=== PATIENT | male | born 1960 | race Caucasian/White ===

== ENCOUNTER 2022-02-08 13:48 | Observation (INO) | payer MEDICARE, MEDICAID, SELFPAY ==
[2022-02-08] VITALS (7 sets, daily range): BP systolic 99–142; BP diastolic 60–78; PULSE 76–100; RESP 16–18; TEMP 36.7–37.2; O2SAT 96–98; BMI 36.0; BMI 36.1
--- NOTE | ~2022-02-08 | XR_ITS ---
EXAMINATION: XR CHEST CLINICAL INFORMATION: Syncope COMPARISON: Chest x-ray 02/10/2018 TECHNIQUE: Frontal view of the chest was obtained. FINDINGS: Stable cardiac silhouette. Patient is status post CABG. The lungs are well aerated. There is no lobar consolidation. No pleural effusion or pneumothorax. Degenerative changes of the spine. XR/XR chest 1V IMPRESSION: No acute pulmonary pathology.
--- NOTE | ~2022-02-08 | CT_ITS ---
EXAMINATION: CT HEAD WITHOUT CONTRAST CLINICAL INFORMATION: Syncope question head injury COMPARISON: None TECHNIQUE: Contiguous axial imaging was performed from the skull base to vertex without intravenous administration of contrast. This CT examination was performed using dose optimization techniques as appropriate, variously including the following: *Automated exposure control *Adjustment of mA and/or kV according to patient size (this includes techniques or standardized protocols for targeted exams where dose is matched to indication/reason for exam; i.e. extremities or head) *Use of iterative reconstruction technique DLP: 696 mGy-cm FINDINGS: There is no evidence of acute intracranial hemorrhage or territorial infarction. No abnormal mass effect or midline shift is seen. [place] to white matter differentiation is well preserved. No extra-axial fluid collections are identified. The ventricles are normal in size. There is no abnormal attenuation within the brain parenchyma. The osseous structures and soft tissues are normal. The mastoid air cells and visualized portions of the paranasal sinuses are well aerated. CT/CT head/brain wo con IMPRESSION: No acute intracranial pathology.
--- NOTE | 2022-02-08 14:21 | ECG_ITS ---
Test Reason : syncope Blood Pressure : / mmHG Vent. Rate : 083 BPM Atrial Rate : 083 BPM P-R Int : 170 ms QRS Dur : 086 ms QT Int : 378 ms P-R-T Axes : 049 051 053 degrees QTc Int : 444 ms Normal sinus rhythm Low voltage QRS T wave abnormality, consider anterior ischemia Abnormal ECG When compared with ECG of 20-NOV-2019 12:18, Premature ventricular complexes are no longer Present Inverted T waves have replaced nonspecific T wave abnormality in Anterior leads Referred By: Jesica Bean Electronically Signed By:CECILE DAWKINS
--- NOTE | 2022-02-08 14:30 | ED.SYNCOPE ---
HPI - Syncope General Chief Complaint: Syncope Stated Complaint: SYNCOPAL EPISODE Time Seen by Provider: 02/08/22 14:06 Source: patient and EMS Mode of arrival: EMS History of Present Illness HPI narrative: 61-year-old male with a past medical history of gastric bypass, CAD, HTN, ETOH abuse, HLD, presenting to the ED s/p syncopal episode while at restaurant [employer]. Per patient he was alone and had nausea with the urge to use the bathroom, stood up and syncopized, unknown head trauma, + LOC, also with fecal defecation and urinary incontinence during episode. Unknown seizure-like activity witnessed. Reports drinking 6 pack of beer daily, does admit to drinking today. Denies history of ETOH withdrawal/withdrawal seizures or prior seizures in the past. Denies headache/visual changes, CP or SOB prior to incident or now. Denies vomiting, dysuria/hematuria. Patient is poor historian MD complaint: loss of consciousness and collapsed Related Data Home Medications Medication Instructions Recorded Confirmed aspirin 81 mg tablet,delayed 1 tab PO DAILY 02/08/22 02/08/22 release atorvastatin 80 mg tablet 1 tab PO DAILY 02/08/22 02/08/22 carvedilol 6.25 mg tablet 1 tab PO BID 02/08/22 02/08/22 cholecalciferol (vitamin D3) 25 1 cap PO DAILY 02/08/22 02/08/22 mcg (1,000 unit) capsule icosapent ethyl 1 gram capsule 2 cap PO BID 02/08/22 02/08/22 lisinopril 10 mg tablet 1 tab PO DAILY 02/08/22 02/08/22 Allergies Allergy/AdvReac Type Severity Reaction Status Date / Time atorvastatin [Lipitor] Allergy Unknown abdominal Verified 10/03/16 00:00 pain pravastatin Allergy Unknown abdominal Verified 10/03/16 00:00 pain rosuvastatin [From CRESTOR] AdvReac Intermediate MUSCLE PAIN Unverified 07/02/20 16:20 Review of Systems Review of Systems: Constitutional: No Fever, No Chills, No Fatigue, No Malaise ENT/Mouth: No Ear Pain, No Nasal Congestion, No Hoarseness, No sore throat, No Rhinorrhea, No Swallowing Difficulty Eyes: No Eye Pain, No Swelling, No Redness, No Discharge, No Vision Changes Cardiovascular: No Chest Pain, No SOB, No Edema, No Palpitations Respiratory: No Cough, No Sputum, No Dyspnea Gastrointestinal: + Nausea (resolved), No Vomiting, No Diarrhea, No Constipation, No Abdominal pain Genitourinary: No Dysuria, No Urinary Frequency, No Hematuria, + Urinary Incontinence & +fecal incoinence, No Urgency, No Flank Pain, No Urinary Flow Changes, No Hesitancy Musculoskeletal: No joint pain, No Myalgias, No Joint Swelling Skin: No Skin Lesions, No rash Neuro: No Weakness, No Numbness, No Paresthesias, + Loss of Consciousness, No Dizziness, No Headache Yes all other systems are reviewed and are negative FORMERLY [facility] Past Medical History Attestation statement: The following information was validated with the patient. Medical History Bypass graft stenosis CAD (coronary artery disease) HTN (hypertension) Social History Social History Advance Directives: No Advance Directives Information Provided: No Physical Exam Vital Signs: Vital Signs: Last Vital Signs Temp 98.3 F 02/08/22 15:28 Pulse 89 02/08/22 15:28 Resp 18 02/08/22 15:28 BP 109/63 02/08/22 15:28 Pulse Ox 96 02/08/22 15:28 BMI result Body Mass Index 36.0 Const: General: cooperative, healthy appearing and no acute distress Orientation/consciousness: patient oriented x3 Limitations: no limitations HEENT: Head: Yes normal to inspection, Yes atraumatic, No Proctor's sign and No raccoon eyes Ears: hearing grossly normal bilaterally General nose exam: Normal external nose present Face and sinus: Yes normal facial exam Throat: Yes posterior oropharynx normal Eyes: General: appearance normal, both eyes and all related structures Pupils: Equal, round and reactive pupils present EOM: EOMs intact bilaterally Neck: Other: No midline cervical spinous tenderness Neck: Yes normal visual inspection and Yes no meningeal signs Resp: Effort & Inspection: normal respiratory effort and no respiratory distress Auscultation: clear to auscultation bilaterally, no rales, no rhonchi and no wheezes Cardio: Rate: regular rate Heart sounds: S1 normal heart sound present and S2 normal heart sound present GI: Other: + fecal and urinary incontinence Inspection: Yes normal to inspection Palpation (GI): Soft to palpation, nontender, no guarding and not rigid Back/Spine/Pelvis: Thoracic/Lumbar Spine: thoracic and lumbar spine normal to inspection Skin: Rashes: no rashes Wounds: no wounds Neuro: Other: No evidence of tongue fasciculations or tremors General: patient oriented x3, tone normal, moves all extremities, no meningeal signs, no focal motor deficits and CN's II-XI intact bilaterally Cranial nerves: Yes CN's II-XII intact bilaterally, Yes Equal, round and reactive pupils present and Yes Bilaterally intact EOM present Motor exam (neuro): 5/5 motor strength present throughout Extrem: General: Yes normal to inspection Course Course Course Narrative: -1520--leukopenia to 4.5. Lactic acid elevated 3.7 > consistent with seizure-like activity -AST/ALT elevated & lipase elevated to 114 > likely from chronic ETOH abuse. Ethanol 140 >> phenobarb protocol initiated XR chest 1V IMPRESSION: No acute pulmonary pathology. -results discussed with patient with certified court/medical interpreter, plan to admit for further management. Patient's close friend Howie Gordon's contact # CT head/brain wo con IMPRESSION: No acute intracranial pathology. > plan to admit for further management MDM - Syncope MDM Narrative Medical decision making narrative: 61-year-old male with a past medical history of gastric bypass, CAD, HTN, ETOH abuse, HLD, presenting to the ED s/p syncopal episode while at restaurant [employer], + LOC, also with fecal defecation and urinary incontinence during episode. Unknown seizure-like activity witnessed. On exam vital signs stable, NAD, no focal neuro deficits, no midline spinous tenderness throughout. Concern for syncope vs seizure vs ETOH withdrawal seizure vs ETOH intoxication. No evidence of ETOH withdrawal at this time. R/o out ACS and metabolic/infectious etiologies Plan: EKG, labs, UA, head CT, CXR, orthostatics, IVF, re-evaluate Differential Diagnosis Differential diagnosis: Likely vasovagal syncope and dehydration Medical Records Attestation: I reviewed the patient's medical records. Lab Data Attestation: I reviewed the patient's lab results. Result diagrams: 02/08/22 14:43 02/08/22 14:43 Labs: Lab Results 04/26/22 04/26/22 04/26/22 Range/Units 14:43 14:43 14:43 WBC 4.5 L (4.8-10.8) X10*3/uL RBC 5.58 (4.60-5.80) X10*6/uL Hgb 14.5 (14.0-18.0) g/dl Hct 44.3 (42.0-52.0) % MCV 79.4 L (80.0-98.0) fL MCH 26.0 L (27.0-33.0) pg MCHC 32.7 (31.0-36.0) g/dl RDW 17.9 H (11.0-16.0) % Plt Count 127 L (160-400) X10*3/uL MPV 11.6 (9.4-12.4) fL Immature Gran % (Auto) 0.2 (0.0-0.4) % Neut % (Auto) 55.0 (45-73) % Lymph % (Auto) 33.8 (20-40) % Treasure % (Auto) 5.8 (2-11) % Eos % (Auto) 4.3 H (0-4) % Baso % (Auto) 0.9 (0-2) % Lymph # (Auto) 1.5 (1.2-4.9) X10*3/uL Treasure # (Auto) 0.3 (0.1-1.2) X10*3/uL Eos # (Auto) 0.2 (0.0-0.4) X10*3/uL Baso # (Auto) 0.0 (0.0-0.2) X10*3/uL Abs Immat Gran (auto) 0.01 (0.00-0.03) X10*3/uL Absolute Neuts (auto) 2.5 (2.0-8.3) x10*3/uL Absolute Nucleated RBC 0.000 (0.0-0.012) X10*3/uL Nucleated RBC % (auto) 0.0 (0.0-0.2) /100WBC Sodium 135 (135-145) mmol/L Potassium 3.9 (3.3-5.1) mmol/L Chloride 102 (96-108) mmol/L Carbon Dioxide 23 (22-29) mmol/L Anion Gap 14 (12-20) BUN 9 (9-16) mg/dL Creatinine 1.01 (0.5-1.4) mg/dL Estim Creat Clear Calc 82.0 Estimated GFR > 60 Random Glucose 167 H (60-115) mg/dL Lactic Acid 3.7 H* (0.5-2.0) mmol/L Calcium 8.3 L (8.4-10.2) mg/dL Magnesium 2.0 (1.6-2.6) mg/dL Total Bilirubin 0.7 (0.0-1.0) mg/dL Direct Bilirubin 0.3 (0.0-0.5) mg/dL AST 184 H (5-37) U/L ALT 93 H (0-40) U/L Alkaline Phosphatase 70 (39-117) U/L Troponin I High Sens (<3.5-35.0) ng/L Total Protein 7.4 (6.5-8.0) g/dL Albumin 3.8 (3.5-5.0) g/dL Lipase 114 H (8-78) U/L Ethyl Alcohol mg/dL COVID-19 ([facility]) (Negative) COVID-19 Clin Com Influenza Type A (LUBA) (Negative) Influenza Type B (LUBA) (Negative) Influenza A & B Note 02/08/22 02/08/22 02/08/22 Range/Units 14:43 14:43 14:43 WBC (4.8-10.8) X10*3/uL RBC (4.60-5.80) X10*6/uL Hgb (14.0-18.0) g/dl Hct (42.0-52.0) % MCV (80.0-98.0) fL MCH (27.0-33.0) pg MCHC (31.0-36.0) g/dl RDW (11.0-16.0) % Plt Count (160-400) X10*3/uL MPV (9.4-12.4) fL Immature Gran % (Auto) (0.0-0.4) % Neut % (Auto) (45-73) % Lymph % (Auto) (20-40) % Treasure % (Auto) (2-11) % Eos % (Auto) (0-4) % Baso % (Auto) (0-2) % Lymph # (Auto) (1.2-4.9) X10*3/uL Treasure # (Auto) (0.1-1.2) X10*3/uL Eos # (Auto) (0.0-0.4) X10*3/uL Baso # (Auto) (0.0-0.2) X10*3/uL Abs Immat Gran (auto) (0.00-0.03) X10*3/uL Absolute Neuts (auto) (2.0-8.3) x10*3/uL Absolute Nucleated RBC (0.0-0.012) X10*3/uL Nucleated RBC % (auto) (0.0-0.2) /100WBC Sodium (135-145) mmol/L Potassium (3.3-5.1) mmol/L Chloride (96-108) mmol/L Carbon Dioxide (22-29) mmol/L Anion Gap (12-20) BUN (9-16) mg/dL Creatinine (0.5-1.4) mg/dL Estim Creat Clear Calc Estimated GFR Random Glucose (60-115) mg/dL Lactic Acid (0.5-2.0) mmol/L Calcium (8.4-10.2) mg/dL Magnesium (1.6-2.6) mg/dL Total Bilirubin (0.0-1.0) mg/dL Direct Bilirubin (0.0-0.5) mg/dL AST (5-37) U/L ALT (0-40) U/L Alkaline Phosphatase (39-117) U/L Troponin I High Sens < 3.5 (<3.5-35.0) ng/L Total Protein (6.5-8.0) g/dL Albumin (3.5-5.0) g/dL Lipase (8-78) U/L Ethyl Alcohol mg/dL COVID-19 ([facility]) Negative (Negative) COVID-19 Clin Com See Note Influenza Type A ([facility]BA) Negative (Negative) Influenza Type B (LUBA) Negative (Negative) Influenza A & B Note See Note 02/08/22 Range/Units 14:43 WBC (4.8-10.8) X10*3/uL RBC (4.60-5.80) X10*6/uL Hgb (14.0-18.0) g/dl Hct (42.0-52.0) % MCV (80.0-98.0) fL MCH (27.0-33.0) pg MCHC (31.0-36.0) g/dl RDW (11.0-16.0) % Plt Count (160-400) X10*3/uL MPV (9.4-12.4) fL Immature Gran % (Auto) (0.0-0.4) % Neut % (Auto) (45-73) % Lymph % (Auto) (20-40) % Treasure % (Auto) (2-11) % Eos % (Auto) (0-4) % Baso % (Auto) (0-2) % Lymph # (Auto) (1.2-4.9) X10*3/uL Treasure # (Auto) (0.1-1.2) X10*3/uL Eos # (Auto) (0.0-0.4) X10*3/uL Baso # (Auto) (0.0-0.2) X10*3/uL Abs Immat Gran (auto) (0.00-0.03) X10*3/uL Absolute Neuts (auto) (2.0-8.3) x10*3/uL Absolute Nucleated RBC (0.0-0.012) X10*3/uL Nucleated RBC % (auto) (0.0-0.2) /100WBC Sodium (135-145) mmol/L Potassium (3.3-5.1) mmol/L Chloride (96-108) mmol/L Carbon Dioxide (22-29) mmol/L Anion Gap (12-20) BUN (9-16) mg/dL Creatinine (0.5-1.4) mg/dL Estim Creat Clear Calc Estimated GFR Random Glucose (60-115) mg/dL Lactic Acid (0.5-2.0) mmol/L Calcium (8.4-10.2) mg/dL Magnesium (1.6-2.6) mg/dL Total Bilirubin (0.0-1.0) mg/dL Direct Bilirubin (0.0-0.5) mg/dL AST (5-37) U/L ALT (0-40) U/L Alkaline Phosphatase (39-117) U/L Troponin I High Sens (<3.5-35.0) ng/L Total Protein (6.5-8.0) g/dL Albumin (3.5-5.0) g/dL Lipase (8-78) U/L Ethyl Alcohol 140 mg/dL COVID-19 ([facility]) (Negative) COVID-19 Clin Com Influenza Type A ([facility]BA) (Negative) Influenza Type B (LUBA) (Negative) Influenza A & B Note ECG Data Attestation: I personally reviewed and interpreted this ECG as follows: ECG interpretation date: 02/08/22 ECG interpretation time: 14:17 Interpretation: EKG normal sinus rhythm with rate of 83. Low voltage QRS. QRS 86. QTC 444. No STEMI Discharge Plan Discharge Clinical Impression: Seizure Patient Disposition: Admitted As Inpatient Prescriptions: No Action atorvastatin 80 mg tablet 1 tab PO DAILY 0RF carvedilol 6.25 mg tablet 1 tab PO BID 0RF aspirin 81 mg tablet,delayed release (DR/EC) 1 tab PO DAILY 0RF lisinopril 10 mg tablet 1 tab PO DAILY 0RF cholecalciferol (vitamin D3) 25 mcg (1,000 unit) capsule 1 cap PO DAILY 0RF icosapent ethyl 1 gram capsule 2 cap PO BID 0RF
[2022-02-08 14:49] LABS: MANUAL DIFF FLAG NO
[2022-02-08 14:51] LABS: Basophils Percent Auto 0.9 % (0-2); Eosinophils Absolute Auto 0.2 X10*3/uL (0.0-0.4); Eosinophils Percent Auto 4.3 % (0-4); Hematocrit 44.3 % (42.0-52.0); Hemoglobin 14.5 g/dl (14.0-18.0); Imm Gran Abs Auto 0.01 X10*3/uL (0.00-0.03); Imm Gran Pct Auto 0.2 % (0.0-0.4); Lymphocytes Absolute Auto 1.5 X10*3/uL (1.2-4.9); Lymphocytes Percent Auto 33.8 % (20-40); Mean Corpuscular HGB Conc 32.7 g/dl (31.0-36.0); Mean Corpuscular Volume 79.4 fL (80.0-98.0); Mean Platelet Volume 11.6 fL (9.4-12.4); Monocytes Absolute Auto 0.3 X10*3/uL (0.1-1.2); Monocytes Percent Auto 5.8 % (2-11); Neutrophils Absolute Auto 2.5 x10*3/uL (2.0-8.3); Platelet Count 127 X10*3/uL (160-400); Red Blood Count 5.58 X10*6/uL (4.60-5.80); Red Cell Distribution Width 17.9 % (11.0-16.0); White Blood Count 4.5 X10*3/uL (4.8-10.8)
--- NOTE | 2022-02-08 14:56 | PHA.MEDREC ---
Pharmacy Consult ? Medication Reconciliation Pharmacy has completed the medication reconciliation. pt says his oyster tonger told him to stop plavix
[2022-02-08] MEDS: 0.9 % Sodium Chloride 1,000 ML 999 ML IV ×2 (14:58→16:08)
[2022-02-08 15:06] LABS: Ethanol 140 mg/dL
[2022-02-08 15:10] LABS: Lactic Acid 3.7 mmol/L (0.5-2.0)
[2022-02-08 15:11] LABS: COVID-19 Test Negative (Negative); IDNOW Serial# 16C4AD1C; Influenza A Negative (Negative); Influenza B2 Negative (Negative)
[2022-02-08 15:12] LABS: Troponin-I High Sensitivity < 3.5 ng/L (<3.5-35.0)
[2022-02-08 15:18] LABS: Alanine Aminotransferase 93 U/L (0-40); Albumin Level 3.8 g/dL (3.5-5.0); Alkaline Phosphatase 70 U/L (39-117); Anion Gap 14 (12-20); Aspartate Amino Transferase 184 U/L (5-37); Bilirubin Direct 0.3 mg/dL (0.0-0.5); Bilirubin Total 0.7 mg/dL (0.0-1.0); Blood Urea Nitrogen 9 mg/dL (9-16); Calcium 8.3 mg/dL (8.4-10.2); Carbon Dioxide 23 mmol/L (22-29); Chloride 102 mmol/L (96-108); Estimated Glomerular Filt Rate > 60; Glucose Random 167 mg/dL (60-115); Lipase 114 U/L (8-78); Potassium 3.9 mmol/L (3.3-5.1); Sodium 135 mmol/L (135-145); Total Protein 7.4 g/dL (6.5-8.0)
[2022-02-08] MEDS: PHENobarbitaL 200 MG, PHENobarbitaL 30 MG 230 MG PO (16:10)
[2022-02-08 16:47] LABS: Reflex Lactate? Lactic Acid Added
[2022-02-08 17:45] LABS: Lactic Acid 3.5 mmol/L (0.5-2.0)
--- NOTE | 2022-02-08 17:55 | P.HPHOSP_ITS ---
History of Present Illness Date of Service: 02/08/22 Chief Complaint: Passing out 61-year-old male with a past medical history of gastric bypass, CAD, HTN, Alcohol dependence he drinks a 6 pack a day, HLD, coming to the ED following a syncopal episode. He states that he was a restaurant, he had nausea and needing to go the bathroom.? He stood up and syncopize with LOC and had fecal and urinary incontinence but no report of tonic clonic activities. He was diaphoretic but seeemed to be ok following the incident. He tells me he drinks 6 pack of beer daily and last drank yesterday. Alcohol level was 140 ? Review of Systems Review of Systems: Gen: no fever Resp: no sob, no cough CV: no chest, no BHAT, no leg edema GI: No n/v, no abd pain Neuro: No confusion Yes all other systems are reviewed and are negative [facility] Medical History Bypass graft stenosis CAD (coronary artery disease) HTN (hypertension) Family History (Updated 02/08/22 @ 18:23 by Alf Yepez MD) Other HTN (hypertension) Social History Patient Tobacco Use Status: Never used Tobacco Currently Displaying Signs/Symptoms of Drug Intoxication Withdrawal: No Advance Directives: No Advance Directives Information Provided: No service: No Current occupational status: retired Meds Allergies Allergy/AdvReac Type Severity Reaction Status Date / Time atorvastatin [Lipitor] Allergy Unknown abdominal Verified 10/03/16 00:00 pain pravastatin Allergy Unknown abdominal Verified 10/03/16 00:00 pain rosuvastatin [From CRESTOR] AdvReac Intermediate MUSCLE PAIN Unverified 07/02/20 16:20 Active Medications: Current Medications Pharmacy Consult (Consult Rx Perform Med Rec) 1 each MISCELLANE ONCE PRN PRN Reason: Consult order Pharmacy Consult (Consult Rx Etoh Phenob Po Dose) 1 each MISCELLANE ONCE PRN; Protocol PRN Reason: Consult order Phenobarbital 100 mg/Phenobarbital 60 mg/Phenobarbital 15 mg 175 mg PO 1999,2300 [facility] [place] Stop: 02/08/22 23:01 Phenobarbital (Phenobarbital 15 Mg Tablet) 45 mg PO BID AMIE Stop: 02/10/22 21:01 Phenobarbital (Phenobarbital 30 Mg Tablet) 30 mg PO BID [facility] [place] Stop: 02/12/22 21:01 Phenobarbital (Phenobarbital 15 Mg Tablet) 15 mg PO DAILY [facility] [place] Stop: 02/14/22 09:01 Home Medications Medication Instructions Recorded Confirmed Last Taken Type aspirin 81 mg tablet,delayed 1 tab PO DAILY 02/08/22 02/08/22 02/08/22 History release atorvastatin 80 mg tablet 1 tab PO DAILY 02/08/22 02/08/22 02/08/22 History carvedilol 6.25 mg tablet 1 tab PO BID 02/08/22 02/08/22 02/08/22 History cholecalciferol (vitamin D3) 25 1 cap PO DAILY 02/08/22 02/08/22 02/08/22 History mcg (1,000 unit) capsule icosapent ethyl 1 gram capsule 2 cap PO BID 02/08/22 02/08/22 02/08/22 History lisinopril 10 mg tablet 1 tab PO DAILY 02/08/22 02/08/22 02/08/22 History Physical Exam Vital Signs and Narrative: Vital Signs: Last Vital Signs Temp 98.3 F 02/08/22 15:28 Pulse 89 02/08/22 15:28 Resp 18 02/08/22 15:28 BP 109/63 02/08/22 15:28 Pulse Ox 96 02/08/22 15:28 BMI result Body Mass Index 36.0 Const: Other: Constitutional: Alert, in no distress, overweight. Mental Status: Oriented to person, place and time. Eyes: Pupils are equal, round and reactive to light. Ear, Nose and Throat: Oropharynx clear, mucous membranes moist. Ears and nose without eformities. Trachea midline. Respiratory: Clear to auscultation. No wheezing, rales or rhonchi. Cardiovascular: S1 S2 regular. No murmurs, rubs or gallops. Gastrointestinal: Abdomen soft, non-tender, non-distended. Normal bowel sounds.? Neurologic: Cranial nerves II-XII grossly intact. No focal neurological deficits. Moves all extremities spontaneously.? Skin: No rashes or lesions.? Musculoskeletal: No cyanosis or clubbing. Psychiatric: Normal mood and affect? Results Labs CBC and Chem 7: 02/08/22 14:43 02/08/22 14:43 Imaging Radiologist's Impressions: Impressions Chest X-Ray 02/08/22 14:54 IMPRESSION: No acute pulmonary pathology. Head CT 02/08/22 15:21 IMPRESSION: No acute intracranial pathology. Assessment and Plan (1) Seizure: Status: Acute Plan 61-year-old male with a past medical history of gastric bypass, CAD, HTN, Alcohol dependence he drinks a 6 pack a day, HLD, coming to the ED following a syncopal episode with urinary and stool incontinence--DDx seizure, and arrhythmia, orthostatic Hypotension 1/ Syncope--clinically sounds like seizure especially in the context of alcohol dependency -Tele monitoring to rule out arrhythmia, consider echo -Neuro consult -EEG tomorrow 2/Alcohol Dependence --high risk for withdrawal -Started on Phenobarbital protocol -Folic acid, thiamine -CARE consult 3/CAD--ASA, Coreg, Lisinopril, Lipitor 4/HLD--Lipitor 5/HTN--Lisinopril, Coreg 6/Elevated Lactic acid--likely from syncopal event and more suggestive of seizure 7/Elevated LFTs d/t alcohol use 6. DVT Prophylaxis--levenox Quality Stroke Does the patient have a stroke diagnosis?: No VTE Prior VTE?: No VTE Risk Level:: Medical - moderate - high VTE Device Contraindication: Treatment Not Indicated VTE Drug Contraindication: Patient Refused
[2022-02-08 18:45] LABS: Appearance Urine CLEAR; Color Urine YELLOW; Glucose Urine UA NEG (NEG); Leukocyte Esterase Urine NEG (NEG); Nitrite Urine NEG (NEG); Specific Gravity - Urine 1.025 (1.005-1.025); Urine Blood NEG (NEG); Urine Ketones NEG (NEG); Urine Protein NEG (NEG-TRACE)
[2022-02-08 19:01] LABS: Amphetamine Screen Urine Not Detected (Not Detect); Barbiturates, Urine Not Detected (Not Detect); Benzodiazepines Screen Urine Not Detected (Not Detect); Cannabinoid Screen Urine Not Detected (Not Detect); Cocaine Screen Urine Not Detected (Not Detect); Fentanyl, urine Not Detected (Not Detect); Opiate Screen Urine Not Detected (Not Detect); Phencyclidine Screen Urine Not Detected (Not Detect)
[2022-02-08 19:09] LABS: Reflex Lactate? Lactic Acid Added
[2022-02-08] MEDS: Dextrose 5 % and 0.45 % NaCl 1,000 ML 100 ML IVCONT (19:19)
[2022-02-08] MEDS: Enoxaparin Sodium 40 MG/0.4 ML SYRINGE SUBCUT (19:19)
[2022-02-08 19:39] LABS: ~Lactic Acid-LAB USE ONLY 2.9 mmol/L (0.5-2.0)
--- NOTE | 2022-02-08 19:56 | PC.NURSE ---
Patient alert and oriented x 3. Patient denies any pain and dizziness. MD questioning whether syncopal episode was a seizure needs neuroloy consult tomorrow. tele: sinus rhythm ' Lovenox for dvt prophylaxis. Will continue with plan of care. Patient has a room 469. tried to call report awaiting a call back.
[2022-02-08 21:08] LABS: Reflex Lactate? 2 Y
[2022-02-08] MEDS: carvediloL 6.25 MG TABLET PO (21:41)
[2022-02-09] VITALS (7 sets, daily range): BP systolic 103–158; BP diastolic 56–89; PULSE 75–94; RESP 14–20; TEMP 36–37.1; O2SAT 96–99
--- NOTE | 2022-02-09 | EEG_ITS ---
This is a 16-channel EEG with an EKG lead. The patient is reported awake during the tracing. Background EEG rhythm is low amplitude fast with no obvious asymmetry or paroxysmal tendency. Photic stimulation does not produce any significant abnormality. Hyperventilation is unremarkable. IMPRESSION: Unremarkable EEG. MD CLARISSA Pool/BERNARDINO / [phone]
[2022-02-09] MEDS: Dextrose 5 % and 0.45 % NaCl 1,000 ML 100 ML IVCONT (05:46)
--- NOTE | 2022-02-09 09:03 | MHC.CM.PN ---
CM met with Patient at bedside and addressed GEORGE, providing him with the original and placing a copy on the chart. Patient lives alone in a house and required no services nor DME RIPPLER. Home/no services is the goal and CM has initiated and will follow for dc planning. PCP is Dr. York and Patient has received J&J/Covid vax and Pfized Booster X1.
--- NOTE | 2022-02-09 10:03 | PM.NEUROCN ---
History of Present Illness Data of Consult Service Date: 02/09/22 Primary Care Provider: Donna Tomlinson MD [facility] Reason for consult: syncopal 61 years old man who apparently drinks alcohol at least few drinks every day was brought to hospital after a passed out. He said that he was having lunch when he had an urge to go to bathroom. apparently he went to bathroom where he felt dizzy everything dark and he passed out. He lost his bowel bladder control. Ambulance was called and he was brought here. He said that during last year or so he had 2 similar episodes. Now he was feeling better. Review of Systems Review of Systems: No recent cold or flu-like illness. He was drinking alcohol and regular basis. [facility] Past Medical History Medical History Bypass graft stenosis CAD (coronary artery disease) HTN (hypertension) Family History Family History (Updated 02/08/22 @ 18:23 by Alf Yepez MD) Other HTN (hypertension) Social History Social History Patient Tobacco Use Status: Never used Tobacco Currently Displaying Signs/Symptoms of Drug Intoxication Withdrawal: No Advance Directives: No Advance Directives Information Provided: No service: No Current occupational status: retired Meds Allergies Allergy/AdvReac Type Severity Reaction Status Date / Time atorvastatin [Lipitor] Allergy Unknown abdominal Verified 10/03/16 00:00 pain pravastatin Allergy Unknown abdominal Verified 10/03/16 00:00 pain rosuvastatin [From CRESTOR] AdvReac Intermediate MUSCLE PAIN Unverified 07/02/20 16:20 Active Medications: Current Medications Acetaminophen (Acetaminophen Supp 650 Mg Supp.Rect) 650 mg NE Q6H PRN PRN Reason: Pain, Mild (Pain Scale 1-3) Aspirin (Aspirin Enteric Coated 81 Mg Tablet.) 81 mg PO DAILY [facility] Atorvastatin Calcium (Atorvastatin Calcium 80 Mg Tablet) 80 mg PO DAILY [facility] Carvedilol (Carvedilol 6.25 Mg Tablet) 6.25 mg PO BID [facility]; Protocol Last Admin: 02/08/22 21:41 Dose: 6.25 mg Documented by: Enoxaparin Sodium (Enoxaparin Sodium 40 Mg/0.4 Ml Syringe) 40 mg SUBCUT Q24H [facility] Last Admin: 02/08/22 19:19 Dose: 40 mg Documented by: Folic Acid (Folic Acid 1 Mg Tablet) 1 mg PO DAILY [facility] Stop: 02/11/22 09:01 Dextrose/Sodium Chloride (D51/2ns) 1,000 mls @ 100 mls/hr IVCONT .Q10H [facility] Last Admin: 02/09/22 05:46 Dose: 100 mls/hr Documented by: Lisinopril (Lisinopril 10 Mg Tablet) 10 mg PO DAILY [facility]; Protocol Non-Formulary Medication (Icosapent Ethyl) 2 cap PO BID [facility] Ondansetron HCl (Ondansetron Hcl 4 Mg/2 Ml Vial) 4 mg IVPUSH Q8H PRN PRN Reason: Nausea and Vomiting Pharmacy Consult (Consult Rx Perform Med Rec) 1 each MISCELLANE ONCE PRN PRN Reason: Consult order Pharmacy Consult (Consult Rx Etoh Phenob Po Dose) 1 each MISCELLANE ONCE PRN; Protocol PRN Reason: Consult order Phenobarbital (Phenobarbital 15 Mg Tablet) 45 mg PO BID [facility] Stop: 02/10/22 21:01 Phenobarbital (Phenobarbital 30 Mg Tablet) 30 mg PO BID [facility] Stop: 02/12/22 21:01 Phenobarbital (Phenobarbital 15 Mg Tablet) 15 mg PO DAILY [facility] Stop: 02/14/22 09:01 Sodium Chloride (0.9 % Sodium Chloride Flush 3 Ml Syringe) 3 ml IVFLUSH QSHIFT [facility] Last Admin: 02/08/22 21:41 Dose: Not Given Documented by: Thiamine HCl (Thiamine Hcl 100 Mg Tablet) 100 mg PO DAILY [facility] Stop: 02/11/22 09:01 Vitamin D (Cholecalciferol (Vitamin D3) 25 Mcg Tablet) 25 mcg PO DAILY [facility] Home Medications Medication Instructions Recorded Confirmed Last Taken Type aspirin 81 mg tablet,delayed 1 tab PO DAILY 02/08/22 02/08/22 02/08/22 History release atorvastatin 80 mg tablet 1 tab PO DAILY 02/08/22 02/08/22 02/08/22 History carvedilol 6.25 mg tablet 1 tab PO BID 02/08/22 02/08/22 02/08/22 History cholecalciferol (vitamin D3) 25 1 cap PO DAILY 02/08/22 02/08/22 02/08/22 History mcg (1,000 unit) capsule icosapent ethyl 1 gram capsule 2 cap PO BID 02/08/22 02/08/22 02/08/22 History lisinopril 10 mg tablet 1 tab PO DAILY 02/08/22 02/08/22 02/08/22 History Physical Exam Vital Signs: Vital Signs: Last Vital Signs Temp 98.1 F 02/09/22 07:30 Pulse 81 02/09/22 07:30 Resp 18 02/09/22 07:30 BP 158/80 H 02/09/22 07:30 Pulse Ox 98 02/09/22 07:30 BMI result Body Mass Index 36.1 Neuro: Other: Alert and awake with normal spontaneity of speech fluency comprehension and affect. Deep tendon reflexes are absent with flexor plantars. Vpbbdh-vl-irct testing was normal. Face was symmetrical. Visual garza are full. There was no nystagmus. Results Labs CBC & Chem 7: 02/08/22 14:43 02/08/22 14:43 Labs: Short CBC 02/08/22 Range/Units 14:43 WBC 4.5 L (4.8-10.8) X10*3/uL Hgb 14.5 (14.0-18.0) g/dl Hct 44.3 (42.0-52.0) % Plt Count 127 L (160-400) X10*3/uL BMP 02/08/22 14:43 Sodium 135 Potassium 3.9 Chloride 102 Carbon Dioxide 23 BUN 9 Creatinine 1.01 Calcium 8.3 L Liver Function 02/08/22 Range/Units 14:43 Total Bilirubin 0.7 (0.0-1.0) mg/dL Direct Bilirubin 0.3 (0.0-0.5) mg/dL AST 184 H (5-37) U/L ALT 93 H (0-40) U/L Alkaline Phosphatase 70 (39-117) U/L Albumin 3.8 (3.5-5.0) g/dL Urine 02/08/22 Range/Units 18:24 Urine Color YELLOW Urine Appearance CLEAR Urine pH 6.0 (5.0-8.0) Ur Specific [place] 1.025 (1.005-1.025) Urine Protein NEG (NEG-TRACE) MG/DL Urine Glucose (UA) NEG (NEG) MG/DL Noncontrast head CT revealed diffuse mild cerebral and cerebellar atrophy Assessment and Plan (1) Seizure: Status: Acute 61 years old man who probably has generalized seizure disorder that might have been triggered by alcohol abuse. Now he was back to baseline. The 1st thing to do is to completely quit alcohol. For now I would arrange an EEG in put him on levetiracetam 500 mg twice a day. I would also recommend ruling out any cardiac source of syncope but that seems less likely. He should be advised about legal repercussions after this kind of episode because of which he should not drive at this time and avoid r Procedures Date of Service Date of Service: 02/09/22
[2022-02-09] MEDS: carvediloL 6.25 MG TABLET PO ×2 (10:29→20:05)
[2022-02-09] MEDS: PHENobarbitaL 15 MG TABLET 45 MG PO ×2 (10:29→20:04)
[2022-02-09] MEDS: Thiamine HCL 100 MG TABLET PO (10:30)
[2022-02-09] MEDS: Atorvastatin Calcium 80 MG TABLET PO (10:30)
[2022-02-09] MEDS: lisinopriL 10 MG TABLET PO (10:30)
[2022-02-09] MEDS: Cholecalciferol (Vitamin D3) 25 MCG TABLET PO (10:30)
[2022-02-09] MEDS: Aspirin Enteric Coated 81 MG TABLET.DR PO (10:30)
[2022-02-09] MEDS: Folic Acid 1 MG TABLET PO (10:30)
--- NOTE | 2022-02-09 11:14 | P.PNIM_ITS ---
Subjective Subjective Date of Service: 02/09/22 Interval History: follow-up on syncope follow-up on syncope highly suggested of seizure interval history: No further events overnight. Doing well at baseline. Review of Systems No seizure, no chest pain no shortness of lilia Physical Exam Vital Signs: Vital Signs: Last Vital Signs Temp 97.0 F 02/09/22 10:53 Pulse 84 02/09/22 10:53 Resp 18 02/09/22 10:53 BP 153/81 H 02/09/22 10:53 Pulse Ox 97 02/09/22 10:53 BMI result Body Mass Index 36.1 Const: Other: General: AO X 3, no acute distress Resp: CTA bilateral CVS: S1,S2,RRR GI: +BS, NT, no distention Skin: No rash Neuro: motor grossly intact Psych: appropriate affect Objective Data Active Medications Acetaminophen (Acetaminophen Supp 650 Mg Supp.Rect) 650 mg SD Q6H PRN PRN Reason: Pain, Mild (Pain Scale 1-3) Aspirin (Aspirin Enteric Coated 81 Mg Tablet.) 81 mg PO DAILY [facility] Last Admin: 02/09/22 10:30 Dose: 81 mg Documented by: KEARA Atorvastatin Calcium (Atorvastatin Calcium 80 Mg Tablet) 80 mg PO DAILY [facility] Last Admin: 02/09/22 10:30 Dose: 80 mg Documented by: KEARA Carvedilol (Carvedilol 6.25 Mg Tablet) 6.25 mg PO BID [facility]; Protocol Last Admin: 02/09/22 10:29 Dose: 6.25 mg Documented by: KEARA Enoxaparin Sodium (Enoxaparin Sodium 40 Mg/0.4 Ml Syringe) 40 mg SUBCUT Q24H [facility] Last Admin: 02/08/22 19:19 Dose: 40 mg Documented by: JERRY Folic Acid (Folic Acid 1 Mg Tablet) 1 mg PO DAILY [facility] Stop: 02/11/22 09:01 Last Admin: 02/09/22 10:30 Dose: 1 mg Documented by: KEARA Dextrose/Sodium Chloride (D51/2ns) 1,000 mls @ 100 mls/hr IVCONT .Q10H [facility] Last Infusion: 02/09/22 10:08 Dose: 0 mls/hr Documented by: KEARA Levetiracetam (Levetiracetam 500 Mg Tablet) 500 mg PO BID [facility] Lisinopril (Lisinopril 10 Mg Tablet) 10 mg PO DAILY [facility]; Protocol Last Admin: 02/09/22 10:30 Dose: 10 mg Documented by: KEARA Non-Formulary Medication (Icosapent Ethyl) 2 cap PO BID [facility] Ondansetron HCl (Ondansetron Hcl 4 Mg/2 Ml Vial) 4 mg IVPUSH Q8H PRN PRN Reason: Nausea and Vomiting Pharmacy Consult (Consult Rx Perform Med Rec) 1 each MISCELLANE ONCE PRN PRN Reason: Consult order Pharmacy Consult (Consult Rx Etoh Phenob Po Dose) 1 each MISCELLANE ONCE PRN; Protocol PRN Reason: Consult order Phenobarbital (Phenobarbital 15 Mg Tablet) 45 mg PO BID [facility] Stop: 02/10/22 21:01 Last Admin: 02/09/22 10:29 Dose: 45 mg Documented by: KEARA Phenobarbital (Phenobarbital 30 Mg Tablet) 30 mg PO BID [facility] Stop: 02/12/22 21:01 Phenobarbital (Phenobarbital 15 Mg Tablet) 15 mg PO DAILY [facility] Stop: 02/14/22 09:01 Sodium Chloride (0.9 % Sodium Chloride Flush 3 Ml Syringe) 3 ml IVFLUSH QSHIFT [facility] Last Admin: 02/09/22 10:29 Dose: Not Given Documented by: KEARA Non-Admin Reason: IV Running Thiamine HCl (Thiamine Hcl 100 Mg Tablet) 100 mg PO DAILY [facility] Stop: 02/11/22 09:01 Last Admin: 02/09/22 10:30 Dose: 100 mg Documented by: KEARA Vitamin D (Cholecalciferol (Vitamin D3) 25 Mcg Tablet) 25 mcg PO DAILY [facility] Last Admin: 02/09/22 10:30 Dose: 25 mcg Documented by: KEARA Labs CBC & Chem 7: 02/08/22 14:43 02/08/22 14:43 Labs: Laboratory Results - last 24 hr 02/08/22 02/08/22 02/08/22 14:43 14:43 14:43 MCV 79.4 L MCH 26.0 L MCHC 32.7 RDW 17.9 H Plt Count 127 L MPV 11.6 Immature Gran % (Auto) 0.2 Neut % (Auto) 55.0 Lymph % (Auto) 33.8 [place] % (Auto) 5.8 Eos % (Auto) 4.3 H Baso % (Auto) 0.9 Lymph # (Auto) 1.5 [place] # (Auto) 0.3 Eos # (Auto) 0.2 Baso # (Auto) 0.0 Abs Immat Gran (auto) 0.01 Absolute Neuts (auto) 2.5 Absolute Nucleated RBC 0.000 Nucleated RBC % (auto) 0.0 Anion Gap 14 Estim Creat Clear Calc 82.0 Estimated GFR > 60 Random Glucose 167 H Lactic Acid 3.7 H* Lactic Acid F/U @ 2Hr Lactic Acid F/U @ 4Hr Calcium 8.3 L Magnesium 2.0 Total Bilirubin 0.7 Direct Bilirubin 0.3 AST 184 H ALT 93 H Alkaline Phosphatase 70 Troponin I High Sens Total Protein 7.4 Albumin 3.8 Lipase 114 H Urine Color Urine Appearance Urine pH Ur Specific [place] Urine Protein Urine Glucose (UA) Urine Ketones Urine Blood Urine Nitrite Ur Leukocyte Esterase Urine Opiates Screen Urine Fentanyl Screen Ur Barbiturates Screen Ur Phencyclidine Scrn Ur Amphetamines Screen U Benzodiazepines Scrn Urine Cocaine Screen U Marijuana (THC) Screen Ethyl Alcohol COVID-19 ([facility]) COVID-19 Clin Com Influenza Type A ([facility]) Influenza Type B ([facility]) Influenza A & B Note 02/08/22 02/08/22 02/08/22 14:43 14:43 14:43 MCV MCH MCHC RDW Plt Count MPV Immature Gran % (Auto) Neut % (Auto) Lymph % (Auto) [place] % (Auto) Eos % (Auto) Baso % (Auto) Lymph # (Auto) [place] # (Auto) Eos # (Auto) Baso # (Auto) Abs Immat Gran (auto) Absolute Neuts (auto) Absolute Nucleated RBC Nucleated RBC % (auto) Anion Gap Estim Creat Clear Calc Estimated GFR Random Glucose Lactic Acid Lactic Acid F/U @ 2Hr Lactic Acid F/U @ 4Hr Calcium Magnesium Total Bilirubin Direct Bilirubin AST ALT Alkaline Phosphatase Troponin I High Sens < 3.5 Total Protein Albumin Lipase Urine Color Urine Appearance Urine pH Ur Specific [place] Urine Protein Urine Glucose (UA) Urine Ketones Urine Blood Urine Nitrite Ur Leukocyte Esterase Urine Opiates Screen Urine Fentanyl Screen Ur Barbiturates Screen Ur Phencyclidine Scrn Ur Amphetamines Screen U Benzodiazepines Scrn Urine Cocaine Screen U Marijuana (THC) Screen Ethyl Alcohol COVID-19 ([facility]) Negative COVID-19 Clin Com See Note Influenza Type A ([facility]) Negative Influenza Type B ([facility]) Negative Influenza A & B Note See Note 02/08/22 02/08/22 02/08/22 14:43 17:06 18:24 MCV MCH MCHC RDW Plt Count MPV Immature Gran % (Auto) Neut % (Auto) Lymph % (Auto) [place] % (Auto) Eos % (Auto) Baso % (Auto) Lymph # (Auto) [place] # (Auto) Eos # (Auto) Baso # (Auto) Abs Immat Gran (auto) Absolute Neuts (auto) Absolute Nucleated RBC Nucleated RBC % (auto) Anion Gap Estim Creat Clear Calc Estimated GFR Random Glucose Lactic Acid 3.5 H* Lactic Acid F/U @ 2Hr Lactic Acid F/U @ 4Hr Calcium Magnesium Total Bilirubin Direct Bilirubin AST ALT Alkaline Phosphatase Troponin I High Sens Total Protein Albumin Lipase Urine Color YELLOW Urine Appearance CLEAR Urine pH 6.0 Ur Specific [place] 1.025 Urine Protein NEG Urine Glucose (UA) NEG Urine Ketones NEG Urine Blood NEG Urine Nitrite NEG Ur Leukocyte Esterase NEG Urine Opiates Screen Urine Fentanyl Screen Ur Barbiturates Screen Ur Phencyclidine Scrn Ur Amphetamines Screen U Benzodiazepines Scrn Urine Cocaine Screen U Marijuana (THC) Screen Ethyl Alcohol 140 COVID-19 ([facility]) COVID-19 Clin Com Influenza Type A ([facility]) Influenza Type B ([facility]) Influenza A & B Note 02/08/22 02/08/22 02/08/22 18:24 19:06 21:40 MCV MCH MCHC RDW Plt Count MPV Immature Gran % (Auto) Neut % (Auto) Lymph % (Auto) [place] % (Auto) Eos % (Auto) Baso % (Auto) Lymph # (Auto) [place] # (Auto) Eos # (Auto) Baso # (Auto) Abs Immat Gran (auto) Absolute Neuts (auto) Absolute Nucleated RBC Nucleated RBC % (auto) Anion Gap Estim Creat Clear Calc Estimated GFR Random Glucose Lactic Acid Lactic Acid F/U @ 2Hr 2.9 H* Lactic Acid F/U @ 4Hr 3.0 H* Calcium Magnesium Total Bilirubin Direct Bilirubin AST ALT Alkaline Phosphatase Troponin I High Sens Total Protein Albumin Lipase Urine Color Urine Appearance Urine pH Ur Specific [place] Urine Protein Urine Glucose (UA) Urine Ketones Urine Blood Urine Nitrite Ur Leukocyte Esterase Urine Opiates Screen Not Detected Urine Fentanyl Screen Not Detected Ur Barbiturates Screen Not Detected Ur Phencyclidine Scrn Not Detected Ur Amphetamines Screen Not Detected U Benzodiazepines Scrn Not Detected Urine Cocaine Screen Not Detected U Marijuana (THC) Screen Not Detected Ethyl Alcohol COVID-19 ([facility]) COVID-19 Clin Com Influenza Type A ([facility]) Influenza Type B ([facility]) Influenza A & B Note Assessment and Plan (1) Seizure: Status: Acute Plan 61-year-old male with a past medical history of gastric bypass, CAD, HTN, Alcohol dependence he drinks a 6 pack a day, HLD, coming to the ED following a syncopal episode with urinary and stool incontinence--DDx seizure, and arrhythmia, orthostatic Hypotension 1/ Syncope--clinically sounds like seizure especially in the context of alcohol dependency -No arrhythmia, get echo -Neuro consult recommends EEG, Keppra 500 bid, no driving 2/Alcohol Dependence --high risk for withdrawal -Started on Phenobarbital protocol -Folic acid, thiamine -CARE consult 3/CAD--ASA, Coreg, Lisinopril, Lipitor 4/HLD--Lipitor 5/HTN--Lisinopril, Coreg 6/Elevated Lactic acid--likely from syncopal event and more suggestive of seizure 7/Elevated LFTs d/t alcohol use 6. DVT Prophylaxis--levenox Quality Stroke Does the patient have a stroke diagnosis?: No VTE Prior VTE?: No VTE Risk Level:: Medical - moderate - high VTE Device Contraindication: Treatment Not Indicated VTE Drug Contraindication: Patient Refused
[2022-02-09] MEDS: levETIRAcetam 500 MG TABLET PO ×2 (12:23→20:04)
--- NOTE | 2022-02-09 13:00 | CA_ITS ---
Transthoracic Echocardiogram Patient (Last, First, Middle): Stevo Pyle, Gender: Male Date of : 1960 Age: 61 Procedure Date: 02/09/2022 Procedure Type: Transthoracic Echocardiogram [place] [facility] [place] Height: 162.56 cm Weight: 95.26 kg BSA: 2.00 m2 Heart Rate: bpm BP: 153 / 81 mmHg Museum Educator: ALICIA Miller MD: Alf Yepez MD Symptoms: syncope Study Quality: Fair ECG Rhythm: Sinus Conclusions: - The left ventricular systolic function is hyperdynamic. The calculated ejection fraction is 72% by biplane method. - No obvious valvular pathology seen on this study. Findings Left Ventricle Normal left ventricular cavity size. There is mildly increased left ventricular wall thickness. The left ventricular systolic function is hyperdynamic. The calculated ejection fraction is 72% by biplane method. There is no evidence of regional wall motion abnormalities. There is no dynamic left ventricular outflow tract obstruction. Diastolic function is normal for age. Right Ventricle Normal right ventricular cavity size. There is low normal right ventricular systolic function. Atria Both atria are normal in size. Aortic Valve There is a normal trileaflet aortic valve. There is no aortic valve stenosis. There is no aortic valve regurgitation. Mitral Valve The mitral valve appears normal. There is no mitral valve regurgitation. There is no mitral valve stenosis. Pulmonic Valve The pulmonic valve is likely normal. Tricuspid Valve There is trace tricuspid valve regurgitation. The pulmonary artery systolic pressure is normal. Great Vessels The asc aorta is normal in size. Venous The inferior vena cava is normal in size and collapses greater than 50% with inspiration. Pericardium/Pleural There is no evidence of pericardial effusion. Prior Study Comparison No prior study available for comparison. Recommendations, Care & Conclusions No obvious valvular pathology seen on this study. Measurements 2D Linear Measurements IVSd: 1.17 0.6-0.9/0.6-1.0 cm LVIDd: 4.30 3.9-5.3/4.2-5.9 cm LVIDd Index: 2.15 2.4-3.2/2.2-3.1 cm/m2 LVIDs: 3.04 2.0-3.6 cm LVPWd: 1.14 0.7-1.1 cm LA Diam: 3.90 2.7-3.8/3.0-4.0 cm LAIDs Index: 1.95 1.5-2.3 cm/m2 LV Mass: 217.67 67-162/88-224 g LV Mass Index: 108.83 43-95/49-115 g/m2 LVOT Diam: 2.10 3.0+(-)1.3 cm 2D Systolic Function EF 4C: 71.40 >55% EF 2C: 73.50 >55% EF BiP: 72.20 >55% Mitral Valve MV Pk E: 0.84 MV PK A: 0.70 MV Decel Time: 224.00 E/A: 1.20 E'Lateral: 7.62 E'Medial: 5.87 E/E' Med: 14.40 E/E' Lat: 11.10 PHT: 66.00 MVA PHT: 3.33 Decel [place]: 3.76 Aortic Valve AoV Pk [place]: 1.38 AoV Mn [place]: 0.99 AoV VTI: 0.24 AoV Pk Grad: 8.00 Aov Mn Grad: 4.00 ROBLES Cont.VTI: 3.28 LVOT LVOT Pk [place]: 1.24 LVOT Mn [place]: 0.85 LVOT VTI: 0.23 LVOT Pk Grad: 6.00 LVOT Mn Grad: 3.00 LVOT Diam: 2.10 LVOT Area: 3.46 Diastolic Function MV Pk E: 0.84 MV Pk A: 0.70 E/A: 1.20 E'Medial: 5.87 E/E' Med: 14.40 E' Laterial: 7.62 E/E' Lat: 11.10 Right Ventricle TAPSE (mm): 16.10 TVS' [place]: 10.20 Tricuspid Valve TR Pk [place]: 2.51 TR Pk Grad: 25.00 RA Press: 8.00 RVSP: 33.00 Great Vessels Aorta Sinus of Valsalva: 3.29 2.0-3.5 cm Ao Asc: 3.00 2.1-3.4 cm Updated in Other Vendor System with Status of Final Kp Phillips MD electronically signed on 02/09/2022 4:12:05 PM with status of Final
--- NOTE | 2022-02-09 17:53 | MHC.RECOVSUP ---
? Reason for consult Recovery Support o Current location: [id number] o Identified substance use concern: Alcohol - Support ? Intervention: o Community resources provided o Harm reduction discussion ? Plan: o Patient to follow up with [facility] after discharge ? Additional information: Met with patient and we talked harm reduction and recovery.. Patient stated that AA is not for him... We talked about [facility] and what they do there.. Patient stated that he will check it out..
[2022-02-09] MEDS: 0.9 % Sodium Chloride Flush 3 ML SYRINGE IVFLUSH ×2 (18:24→20:05)
[2022-02-09] MEDS: Enoxaparin Sodium 40 MG/0.4 ML SYRINGE SUBCUT (18:24)
[2022-02-10 03:22] VITALS: BP 129/75; PULSE 67; RESP 20; TEMP 36.6; O2SAT 98
[2022-02-10 07:08] VITALS: BP 147/90; PULSE 76; RESP 18; TEMP 36.7; O2SAT 99
[2022-02-10] MEDS: Aspirin Enteric Coated 81 MG TABLET.DR PO (11:02)
[2022-02-10] MEDS: carvediloL 6.25 MG TABLET PO (11:02)
[2022-02-10] MEDS: 0.9 % Sodium Chloride Flush 3 ML SYRINGE IVFLUSH (11:02)
[2022-02-10] MEDS: PHENobarbitaL 15 MG TABLET 45 MG PO (11:03)
[2022-02-10] MEDS: lisinopriL 10 MG TABLET PO (11:03)
[2022-02-10] MEDS: Atorvastatin Calcium 80 MG TABLET PO (11:03)
[2022-02-10] MEDS: Folic Acid 1 MG TABLET PO (11:03)
[2022-02-10] MEDS: Cholecalciferol (Vitamin D3) 25 MCG TABLET PO (11:03)
[2022-02-10] MEDS: levETIRAcetam 500 MG TABLET PO (11:03)
[2022-02-10] MEDS: Dextrose 5 % and 0.45 % NaCl 1,000 ML 100 ML IVCONT (11:03)
[2022-02-10] MEDS: Thiamine HCL 100 MG TABLET PO (11:03)
[2022-02-10 11:52] VITALS: BP 132/78; PULSE 86; RESP 18; TEMP 36.8; O2SAT 97
--- NOTE | 2022-02-10 12:05 | P.DS_ITS ---
DS: Providers Provider Date of Service: 02/10/22 Date of admission: 02/08/22 18:27 Primary care physician: Donna Tomlinson MD Consults: 02/08/22 18:36 Consult to Neurology Routine Consulting Provider: [facility] Reason for consultation: Syncope ? seizure 02/09/22 11:16 Consult to Care Team Routine Comment: Reason for consultation: alcoholism DS: Diagnosis Discharge Diagnosis (1) Seizure: Status: Acute DS: Summary Hospital Course Hospital Course: 61-year-old male with a past medical history of gastric bypass, CAD, HTN, Alcohol dependence he drinks a 6 pack a day, HLD, coming to the ED following a syncopal episode. He states that he was a restaurant,? he had nausea and needing to go the bathroom.? He stood up and syncopize with? LOC and had fecal and urinary incontinence but no report of tonic clonic activities. He was diaphoretic but seeemed to be ok following the incident. He tells me he drinks 6 pack of beer daily and last drank yesterday.? Alcohol level was 140. Hospital course: Patient was admited and observed on telemetry and did not have any arrythmia, he had echo which showed EF around 70% no wall motion abnormalities. He was seen by Neurologist Dr. Paz and is compelled that he had seizure and is started on Keppra, EEG is done result is pending but doesn't impact discharge. He will be discharge with Keppra 500 mg bid. He was on Phenobarbital for alcohol withdrawal prevention and did not go into into withdrawal. Care team advised him and given him resources to stop drinking as well Time Spent with Patient Time attestation: Total time spent providing and/or coordinating discharge services: Discharge coordination time: Greater than 30 minutes Quality: Safe Use of Opioids Does Pt have an Active Cancer Diagnosis on the Problem List?: No Quality: Stroke Does the patient have a stroke diagnosis?: No Physical Exam Vital Signs: Vital Signs: Last Vital Signs Temp 98.2 F 02/10/22 11:52 Pulse 86 02/10/22 11:52 Resp 18 02/10/22 11:52 BP 132/78 02/10/22 11:52 Pulse Ox 97 02/10/22 11:52 BMI result Body Mass Index 36.1 Const: Other: General: AO X 3, no acute distress Resp: CTA bilateral CVS: S1,S2,RRR GI: +BS, NT, no distention Skin: No rash Neuro: motor grossly intact Psych: appropriate affect Discharge Plan Discharge Anticipated Discharge Date/Time: 02/10/22 11:55 Patient Disposition: Home, Self-Care Discharge Diagnosis: Seizure Referrals: Donna Luque MD [Primary Care Provider] - 1 Week Eze Paz MD [Physician] - 2 Weeks Discharge Medications: New levetiracetam 500 mg Tablet 500 mg PO BID Qty: 60 0RF Continued atorvastatin 80 mg tablet 1 tab PO DAILY 0RF carvedilol 6.25 mg tablet 1 tab PO BID 0RF aspirin 81 mg tablet,delayed release (DR/EC) 1 tab PO DAILY 0RF lisinopril 10 mg tablet 1 tab PO DAILY 0RF cholecalciferol (vitamin D3) 25 mcg (1,000 unit) capsule 1 cap PO DAILY 0RF icosapent ethyl 1 gram capsule 2 cap PO BID 0RF Discharge Orders: Discharge Order (Routine); Ordered 02/10/22 Ordered By: Alf Yepez Diet: advance to usual diet Activity on Discharge: As tolerated Stand Alone Forms: Patient Portal Discharge page Care Plan Goals: prevent seizures Health Concerns: Seizures, Alcohol dependency Plan of Treatment: Take Keppra as directed, continue taking all your usual medication, avoid using alcohol * Enjoy your normal activities. Most people with epilepsy lead normal lives. * Don't do hazardous activities, such as mountain climbing or scuba diving. A seizure under these conditions could lead to a fatal accident. * Don't swim alone or participate in other similar activities without others nearby. * You are restricted to drive by the [facility] unless you have not had seizure for more than 6 months. * Follow up with Dr. Paz Assessment: As above
--- NOTE | 2022-02-10 14:15 | MHC.RECOVRN ---
Met with pt in 469 prior to dc to discuss alcohol use. Pt reports drinking 6-8 beers daily, my whole life. Pt denies other substances. Pt reports extensive family hx of AUD, father and brother from AUD complications. Pt reports only tx for AUD has been through PCP where pt trialed naltrexone. Pt states I took it for a little while and then stopped. Pt is interested in abstaining from alcohol and restarting naltrexone. Pt plans to do this outpatient after dc with [facility]. Pt has family support, does not drink and would like pt to abstain. Pt is not interested in AA. Pt reports going to the gym daily and will also use this as a tool to help with abstinence. Pt met with [facility] while inpatient. Pt declines referrals at this time. Recovery resources were discussed and left with pt. Pt given t/w contact information if questions or concerns arise.
--- NOTE | 2022-02-10 15:02 | MHC.CM.PN ---
ARIEL 02/09 Male discharged to home no services. Family providing transport.
== END 2022-02-10 12:30 | disposition home or self-care (01) ==
LOC: HO.ED 16:26 → HO.EDOVER 18:34 → HO.IMC 18:41
PROVIDERS: Physician Assistant; Admitting Provider Internal Medicine; Emergency Provider Emergency Medicine; PCP Internal Medicine; Visit Provider Internal Medicine
DX: R56.9 Unspecified convulsions (principal); R55 Syncope and collapse; I10 Essential (primary) hypertension; I25.10 Atherosclerotic heart disease of native coronary artery without angina pectoris; E78.5 Hyperlipidemia, unspecified; R94.31 Abnormal electrocardiogram [ECG] [EKG]; R15.1 Fecal smearing; R32 Unspecified urinary incontinence; R74.02 Elevation of levels of lactic acid dehydrogenase [LDH]; R94.5 Abnormal results of liver function studies; G31.9 Degenerative disease of nervous system, unspecified; F10.20 Alcohol dependence, uncomplicated; Y90.6 Blood alcohol level of 120-199 mg/100 ml; Z20.822 Contact with and (suspected) exposure to COVID-19; Z95.1 Presence of aortocoronary bypass graft; Z88.8 Allergy status to other drugs, medicaments and biological substances; Z79.82 Long term (current) use of aspirin; Z79.899 Other long term (current) drug therapy
CPT/HCPCS: 36415; 70450; 71045; 80048; 80076; 80307; 81003; 82077; 83605; 83690; 83735; 84484; 85025; 87502; 87635; 93005; 93306; 95816; 96361; 96365; 96366; 96375; 99219; 99285; J1650; Q9957

== ENCOUNTER 2023-12-27 08:21 | Outpatient (REF) | payer MEDICARE, MEDICAID, SELFPAY ==
[2023-12-27 11:23] LABS: MANUAL DIFF FLAG NO
[2023-12-27 11:30] LABS: Basophils Percent Auto 0.6 % (0-2); Eosinophils Absolute Auto 0.5 X10*3/uL (0.0-0.4); Eosinophils Percent Auto 10.8 % (0-4); Hemoglobin 14.1 g/dl (14.0-18.0); Imm Gran Abs Auto 0.01 X10*3/uL (0.00-0.03); Imm Gran Pct Auto 0.2 % (0.0-0.4); Lymphocytes Absolute Auto 2.3 X10*3/uL (1.2-4.9); Lymphocytes Percent Auto 46.4 % (20-40); Mean Corpuscular Hemoglobin 23.2 pg (27.0-33.0); Mean Corpuscular Volume 72.4 fL (80.0-98.0); Mean Platelet Volume 11.4 fL (9.4-12.4); Monocytes Absolute Auto 0.4 X10*3/uL (0.1-1.2); Monocytes Percent Auto 7.6 % (2-11); Neutrophils Absolute Auto 1.7 x10*3/uL (2.0-8.3); Neutrophils Percent Auto 34.4 % (45-73); Platelet Count 154 X10*3/uL (160-400); Red Blood Count 6.08 X10*6/uL (4.60-5.80); Red Cell Distribution Width 18.6 % (11.0-16.0); White Blood Count 4.9 X10*3/uL (4.8-10.8)
[2023-12-27 11:40] LABS: Alanine Aminotransferase 16 U/L (0-40); Albumin Level 4.3 g/dL (3.5-5.0); Alkaline Phosphatase 80 U/L (39-117); Anion Gap 12 (12-20); Aspartate Amino Transferase 17 U/L (5-37); Bilirubin Direct 0.3 mg/dL (0.0-0.5); Bilirubin Total 0.8 mg/dL (0.0-1.0); Blood Urea Nitrogen 9 mg/dL (9-16); Calcium 9.3 mg/dL (8.4-10.2); Carbon Dioxide 27 mmol/L (22-29); Chloride 103 mmol/L (96-108); Cholesterol 141 mg/dL (<200); Estimated Glomerular Filt Rate > 60; Glucose Random 97 mg/dL (60-115); HDL Cholesterol 45 mg/dL (>40); LDL Cholesterol Calculated 80 mg/dL (<100); Potassium 4.1 mmol/L (3.3-5.1); Sodium 138 mmol/L (135-145); Total Protein 7.8 g/dL (6.5-8.0); Triglycerides 81 mg/dL (<150)
[2023-12-27 11:55] LABS: HIV AB/AG Nonreactive (Nonreactive); HIV Num 1 0.05 S/CO (0.00-0.99); ~Hepatitis C Antibody Nonreactive (Nonreactive)
[2023-12-27 15:11] LABS: Estimated Average Glucose 120 mg/dL; Hemoglobin A1c % 5.8 % (<6.0)
== END 2023-12-27 08:22 | disposition home or self-care (01) ==
LOC: HO.HHCL 08:21
PROVIDERS: Visit Provider Internal Medicine
DX: Z00.00 Encounter for general adult medical examination without abnormal findings (principal); I10 Essential (primary) hypertension; R73.03 Prediabetes
CPT/HCPCS: 36415; 80048; 80061; 80076; 83036; 85025; 86803; 87389

== ENCOUNTER 2024-11-02 09:47 | Emergency (ER) | payer MEDICARE, MEDICAID, SELFPAY ==
[2024-11-02] VITALS (9 sets, daily range): BP systolic 112–139; BP diastolic 63–78; PULSE 71–82; RESP 14–16; TEMP 36.6–37.5; O2SAT 95–97; BMI 32.0
--- NOTE | ~2024-11-02 | CT_ITS ---
CLINICAL HISTORY: trauma CT head without contrast Comparison: None Findings: No intra-axial mass, midline shift, hydrocephalus, or acute hemorrhage. No significant atrophy-like change or white matter disease. The visualized paranasal sinuses and mastoid air cells are normal. The orbits are unremarkable. No skull fracture. IMPRESSION: 1. No acute intracranial findings. This document has been electronically signed by: Jg Oconnor MD on 11/02/2024 11:23:08
--- NOTE | ~2024-11-02 | XR_ITS ---
CLINICAL HISTORY: cough One view of the chest Comparison: CR/SR - XR CHEST 1V - 02/08/22 14:42 EDT Findings: Cardiac and mediastinal contours are normal. Mild interstitial prominence with scattered peribronchial thickening. No focal consolidation. No effusion. No pneumothorax. No acute osseous finding. Impression: Mild interstitial prominence with scattered peribronchial thickening. No focal consolidation. This document has been electronically signed by: Jg Oconnor MD on 11/02/2024 10:55:42
--- NOTE | ~2024-11-02 | CT_ITS ---
CLINICAL HISTORY: neck trauma CT cervical spine without contrast Comparison: None Findings: Straightening of the normal cervical lordosis. Mild multilevel degenerative change. No fracture or malalignment. Facet joints are normally imbricating. No prevertebral soft tissue edema. No discrete thyroid lesion. Impression: Multilevel degenerative change without acute process. This document has been electronically signed by: Jg Oconnor MD on 11/02/2024 11:23:18
--- NOTE | 2024-11-02 10:14 | ECG_ITS ---
Test Reason : SYNCOPE Blood Pressure : */* mmHG Vent. Rate : 72 BPM Atrial Rate : 72 BPM P-R Int : 170 ms QRS Dur : 90 ms QT Int : 366 ms P-R-T Axes : 43 64 50 degrees QTcB Int : 400 ms Normal sinus rhythm Nonspecific T wave abnormality Abnormal ECG When compared with ECG of 08-Feb-2022 14:17, No significant change was found Referred By: Kareen Hough Electronically Signed By: Mik Angeles
--- NOTE | 2024-11-02 10:18 | ED.SYNCOPE ---
HPI - Syncope General Chief Complaint: Syncope Stated Complaint: SYNCOPAL EPISODE,DRY COUGH,ABD PAIN Time Seen by Provider: 11/02/24 09:58 Source: patient, EMS and old records reviewed Mode of arrival: EMS Limitations: no limitations History of Present Illness ED Provider: PATRICIA PATTON narrative: 64 yo male with PMH of seizures but not on AEDs was seen in 2021 here for this, HLD, CAD s/p CABG on aspirin and plavix, HLD notes he has had cough with green phlegm for 2 days every time he coughs his belly hurts. He denies CP/SOB, sick contacts, n/v/d and has no pain if he is not coughing. He notes today he was sitting on the couch coughed and had the same pain he then woke up on the floor. He notes he feels fine now has a bump on R cheek area. He has no dizziness when standing, no other injuries, no GIB. He knew what was going on when he woke up and no tongue biting or urinary incontinence MD complaint: loss of consciousness Onset (ago): hour(s) (1) -: second(s) Prodromal symptoms: other (coughed hard then had abdominal pain) Witnessed: No Context: at rest Injuries sustained associated with event: face and head Current symptoms: none History: seizure disorder Treatments prior to arrival: none Related Data Home Medications ?Medication ?Instructions ?Recorded ?Confirmed aspirin 81 mg tablet,delayed 1 tab PO DAILY 02/08/22 02/08/22 release atorvastatin 80 mg tablet 1 tab PO DAILY 02/08/22 02/08/22 carvedilol 6.25 mg tablet 1 tab PO BID 02/08/22 02/08/22 cholecalciferol (vitamin D3) 25 1 cap PO DAILY 02/08/22 02/08/22 mcg (1,000 unit) capsule icosapent ethyl 1 gram capsule 2 cap PO BID 02/08/22 02/08/22 lisinopril 10 mg tablet 1 tab PO DAILY 02/08/22 02/08/22 Previous Rx's ?Medication ?Instructions ?Recorded levetiracetam 500 mg tablet 500 mg PO BID #60 tabs 02/10/22 oseltamivir 75 mg capsule (Tamiflu) 75 mg PO BID 5 days #10 caps 11/02/24 Allergies Allergy/AdvReac Type Severity Reaction Status Date / Time atorvastatin [Lipitor] Allergy Unknown abdominal Verified 11/02/24 10:01 pain pravastatin Allergy Unknown abdominal Verified 11/02/24 10:01 pain rosuvastatin [From CRESTOR] AdvReac Intermediate MUSCLE PAIN Verified 11/02/24 10:01 Review of Systems Review of Systems: Constitutional : No Fever, No Chills, No Fatigue ENT/Mouth : No sore throat, No Rhinorrhea Eyes: No Eye Pain, No Swelling, No Redness Cardiovascular : No Chest Pain, No SOB, No Dyspnea on Exertion Respiratory : pos Cough, pos Sputum Gastrointestinal : No Nausea, No Vomiting, No Diarrhea, No abdominal Pain Genitourinary : No Dysuria, No Urinary Frequency, No Hematuria, Musculoskeletal : No joint pain, No Myalgias, No Joint Swelling Skin : No Skin Lesions, No rash, pos abrasion Neuro : No Weakness, No Numbness, No Dizziness, no Headache Psych : No Anxiety/Panic, No Depression All other systems reviewed and are negative [facility] Past Medical History Attestation statement: The following information was validated with the patient. Source: old records reviewed Medical History CAD (coronary artery disease) HTN (hypertension) Bypass graft stenosis Family History Family History (Updated 02/08/22 @ 18:23 by Alf Yepez MD) Other HTN (hypertension) Social History Social History Patient Tobacco Use Status: Never used Tobacco Smoked in Last 30 Days: No Use of substances other than those prescribed or required for medical reasons: No Advance Directives: No Advance Directives Information Provided: No Do you have a plan to hurt others: No Plan service: No Current occupational status: retired Physical Exam Vital Signs: Vital Signs: Last Vital Signs Temp 99.5 F 11/02/24 10:02 Pulse 71 11/02/24 12:25 Resp 16 11/02/24 12:25 BP 112/72 11/02/24 12:25 Pulse Ox 96 11/02/24 12:25 O2 Del Method Room Air 11/02/24 12:25 BMI result Body Mass Index 32.0 Appearance: Alert. Oriented X3. No acute distress. Eyes: Pupils equal, round and reactive to light. ENT: Pharynx normal. R zygoma mild contusion and abrasion Neck: Normal inspection. Neck supple. CVS: Normal heart rate and rhythm. Pulses normal. Respiratory: No respiratory distress. Breath sounds normal. Abdomen: Soft and non-tender. Skin: Skin warm and dry. Normal skin color. Normal skin turgor. Extremities: No lower extremity edema. No calf ttp Neuro: Oriented X 3. No motor deficit. No sensory deficit. CN2-12 intact Course Course Course Narrative: passed out again while coughing in front of staff woke up dizzy Medical Decision Making Medical Decision Making [facility] Narrative: 64 yo male with PMH of seizures but not on AEDs was seen in 2021 here for this, HLD, CAD s/p CABG on aspirin and plavix, HLD here with c/o cough for 2 days that causes his stomach to hurt at baseline he has no abdominal pain n/v/d and no fevers. He states he passed out today due to coughing and woke up on the floor he does not tell a history of seizures this seems more vasovagal. His abd exam is benign I doubt he has hematoma at this time basic labs, CT head/cspine, CXR and viral panel. Differential Diagnosis Differential Diagnoses: The differential diagnosis associated with the presentation includes vasovagal syncope, dehydration, anemia, head injury no CP/SOB to suggest ACS or VTE has no abdominal ttp on exam currently no mass felt doubt rectus sheath hematoma Admission/Observation Consideration of admission/observation: Escalation of care including admission/observation considered offered admission but he and his refuse he is aware that he is as risk for injury and that we can admit him but he refuses his is aware he cannot walk down the stairs, drive, shower alone and if he has to cough he should sit down immeidatley in a safe place they still do not want admission Lab Data [facility] Lab Attestation statement: I reviewed the patient's lab results. 11/02/24 12:29 11/02/24 10:23 Labs: Lab Results 11/02/24 11/02/24 11/02/24 Range/Units 10:10 10:23 12:29 WBC 6.2 6.8 (4.8-10.8) X10*3/uL RBC 5.55 5.72 (4.60-5.80) X10*6/uL Hgb 13.0 L 13.1 L (14.0-18.0) g/dl Hct 39.5 L 40.8 L (42.0-52.0) % MCV 71.2 L 71.3 L (80.0-98.0) fL MCH 23.4 L 22.9 L (27.0-33.0) pg MCHC 32.9 32.1 (31.0-36.0) g/dl RDW 17.4 H 18.5 H (11.0-16.0) % Plt Count 144 L 152 L (160-400) X10*3/uL MPV 10.3 11.1 (9.4-12.4) fL Immature Gran % (Auto) 0.2 (0.0-0.4) % Neut % (Auto) 63.0 (45-73) % Lymph % (Auto) 18.6 L (20-40) % [place] % (Auto) 11.6 H (2-11) % Eos % (Auto) 6.1 H (0-4) % Baso % (Auto) 0.5 (0-2) % Lymph # (Auto) 1.2 (1.2-4.9) X10*3/uL [place] # (Auto) 0.7 (0.1-1.2) X10*3/uL Eos # (Auto) 0.4 (0.0-0.4) X10*3/uL Baso # (Auto) 0.0 (0.0-0.2) X10*3/uL Abs Immat Gran (auto) 0.01 (0.00-0.03) X10*3/uL Absolute Neuts (auto) 3.9 (2.0-8.3) x10*3/uL Absolute Nucleated RBC 0.000 0.000 (0.0-0.012) X10*3/uL Nucleated RBC % (auto) 0.0 0.0 (0.0-0.2) /100WBC Sodium 136 (135-145) mmol/L Potassium 4.0 (3.3-5.1) mmol/L Chloride 106 (96-108) mmol/L Carbon Dioxide 25 (22-29) mmol/L Anion Gap 9 L (12-20) BUN 6 L (9-16) mg/dL Creatinine 0.75 (0.5-1.4) mg/dL Estim Creat Clear Calc 110.9 Estimated GFR > 60 Random Glucose 104 (60-115) mg/dL Calcium 8.6 D (8.4-10.2) mg/dL Magnesium 1.8 (1.6-2.6) mg/dL Total Bilirubin 0.5 (0.0-1.0) mg/dL Direct Bilirubin 0.2 (0.0-0.5) mg/dL AST 21 (5-37) U/L ALT 16 (0-40) U/L Alkaline Phosphatase 80 (39-117) U/L Troponin I High Sens < 2.7 < 2.7 (<3.5-35.0) ng/L Total Protein 7.7 (6.5-8.0) g/dL Albumin 4.0 (3.5-5.0) g/dL Lipase 25 (8-78) U/L Influenza Type A (PCR) POSITIVE A (Negative) Influenza Type B (PCR) NEGATIVE (Negative) RSV RNA Qual (PCR) NEGATIVE (Negative) SARS-CoV-2 RNA (RT-PCR) NEGATIVE (Negative) Independent Interpretation I performed an independent interpretation of an: EKG, Plain X-Ray (no pneumonia) and CT Scan (no trauma) Interpretation: Rate: 72 Rhythm: NSR [place]: normal Normal P waves. Normal CR. incomplete RBBB ST T wave : inverted t waves V1 and V2, no PATO qTC: 400 prior studies: no change from priors The study has been interpreted contemporaneously by me. . Radiology Impression Discussion of test interpretation with radiology: I have reviewed the radiologist's reading. Independent Historian Clinical information obtained from an independent historian. History obtained from or confirmed by: EMS External Record Review External record reviewed: Inpatient record and Outpatient record Prescription Management I considered prescription management with: Antiviral Discharge Plan Discharge Clinical Impression: Cough syncope, Influenza A Patient Disposition: Home, Self-Care Instructions: Syncope (ED), Influenza (ED) Additional Instructions: you were offered admission but refused you can come back at any time while you have this you should not be driving, cooking over an open flame, operating heavy machinery, going up and down stairs alone, when you have to cough please sit down in a safe place Prescriptions: New oseltamivir [Tamiflu] 75 mg capsule 75 mg PO BID 5 Days Qty: 10 0RF No Action atorvastatin 80 mg tablet 1 tab PO DAILY carvedilol 6.25 mg tablet 1 tab PO BID aspirin 81 mg tablet,delayed release (DR/EC) 1 tab PO DAILY lisinopril 10 mg tablet 1 tab PO DAILY cholecalciferol (vitamin D3) 25 mcg (1,000 unit) capsule 1 cap PO DAILY icosapent ethyl 1 gram capsule 2 cap PO BID levetiracetam 500 mg Tablet 500 mg PO BID Qty: 60 0RF Print Language: Macanese
[2024-11-02 10:34] LABS: MANUAL DIFF FLAG NO
[2024-11-02 10:36] LABS: Basophils Percent Auto 0.5 % (0-2); Eosinophils Absolute Auto 0.4 X10*3/uL (0.0-0.4); Eosinophils Percent Auto 6.1 % (0-4); Hematocrit 39.5 % (42.0-52.0); Imm Gran Abs Auto 0.01 X10*3/uL (0.00-0.03); Imm Gran Pct Auto 0.2 % (0.0-0.4); Lymphocytes Absolute Auto 1.2 X10*3/uL (1.2-4.9); Lymphocytes Percent Auto 18.6 % (20-40); Mean Corpuscular HGB Conc 32.9 g/dl (31.0-36.0); Mean Corpuscular Hemoglobin 23.4 pg (27.0-33.0); Mean Corpuscular Volume 71.2 fL (80.0-98.0); Mean Platelet Volume 10.3 fL (9.4-12.4); Monocytes Absolute Auto 0.7 X10*3/uL (0.1-1.2); Monocytes Percent Auto 11.6 % (2-11); Neutrophils Absolute Auto 3.9 x10*3/uL (2.0-8.3); Platelet Count 144 X10*3/uL (160-400); Red Blood Count 5.55 X10*6/uL (4.60-5.80); Red Cell Distribution Width 17.4 % (11.0-16.0); White Blood Count 6.2 X10*3/uL (4.8-10.8)
[2024-11-02 10:49] LABS: Alanine Aminotransferase 16 U/L (0-40); Alkaline Phosphatase 80 U/L (39-117); Anion Gap 9 (12-20); Aspartate Amino Transferase 21 U/L (5-37); Bilirubin Direct 0.2 mg/dL (0.0-0.5); Bilirubin Total 0.5 mg/dL (0.0-1.0); Blood Urea Nitrogen 6 mg/dL (9-16); Calcium 8.6 mg/dL (8.4-10.2); Carbon Dioxide 25 mmol/L (22-29); Chloride 106 mmol/L (96-108); Creatinine Clr Calc Pharmacy 110.9; Estimated Glomerular Filt Rate > 60; Glucose Random 104 mg/dL (60-115); Lipase 25 U/L (8-78); Magnesium 1.8 mg/dL (1.6-2.6); Sodium 136 mmol/L (135-145); Total Protein 7.7 g/dL (6.5-8.0)
[2024-11-02 10:57] LABS: Troponin-I High Sensitivity < 2.7 ng/L (<3.5-35.0)
[2024-11-02 11:19] LABS: Influenza A PCR POSITIVE (Negative); Influenza B PCR NEGATIVE (Negative); Resp Syncy Virus RNA Qual PCR NEGATIVE (Negative); SARS COV2 PCR INHOUSE NEGATIVE (Negative)
[2024-11-02 12:58] LABS: Troponin-I High Sensitivity < 2.7 ng/L (<3.5-35.0)
[2024-11-02 13:01] LABS: Hematocrit 40.8 % (42.0-52.0); Hemoglobin 13.1 g/dl (14.0-18.0); Mean Corpuscular HGB Conc 32.1 g/dl (31.0-36.0); Mean Corpuscular Hemoglobin 22.9 pg (27.0-33.0); Mean Corpuscular Volume 71.3 fL (80.0-98.0); Mean Platelet Volume 11.1 fL (9.4-12.4); Platelet Count 152 X10*3/uL (160-400); Red Blood Count 5.72 X10*6/uL (4.60-5.80); Red Cell Distribution Width 18.5 % (11.0-16.0); White Blood Count 6.8 X10*3/uL (4.8-10.8)
== END 2024-11-02 13:57 | disposition home or self-care (01) ==
PROVIDERS: Emergency Provider Emergency Medicine; PCP Internal Medicine
DX: J10.1 Influenza due to other identified influenza virus with other respiratory manifestations (principal); R05.9 Cough, unspecified; R55 Syncope and collapse; Z03.818 Encounter for observation for suspected exposure to other biological agents ruled out; I10 Essential (primary) hypertension; Z79.82 Long term (current) use of aspirin; Z79.02 Long term (current) use of antithrombotics/antiplatelets; Z79.899 Other long term (current) drug therapy
CPT/HCPCS: 0241U; 36415; 70450; 71045; 72125; 80048; 80076; 83690; 83735; 84484; 85025; 85027; 93005; 99284; 99285

== ENCOUNTER → 2024-11-02 10:13 | Outpatient (BNV) | payer MEDICARE, MEDICAID, SELFPAY | PROVIDERS: Emergency Provider Emergency Medicine; PCP Internal Medicine; Visit Provider Radiology Vascular & Interventional Radiology | DX: R55 Syncope and collapse (principal); S09.90XA Unspecified injury of head, initial encounter | CPT/HCPCS: 70450; 71045; 72125 ==

== ENCOUNTER → 2024-11-02 10:14 | Outpatient (BNV) | payer MEDICARE, MEDICAID, SELFPAY | PROVIDERS: Emergency Provider Emergency Medicine; PCP Internal Medicine; Visit Provider Internal Medicine Cardiovascular Disease | DX: R55 Syncope and collapse (principal) | CPT/HCPCS: 93010 ==

== ENCOUNTER 2025-06-11 08:14 | Outpatient (REF) | payer MEDICARE, MEDICAID, SELFPAY ==
--- OUTSIDE RECORDS SUMMARY | 2025-06-11 08:36 | XMS_ITS | Patient Health Record ---
Author Organization [facility] Address [address] [place] [address] Care Team Providers Care Turnstile Collector Name Role Phone Nilsa Arreola Primary Care Provider Lorenzo Fay Unavailable [phone] Reason For Referral No Information Medications Medication SIG (Take, Route, Fr equency, Duration) Notes Start Date End Date Status Anusol-HC 25 MG 1 suppository Rectal Once at night for 14 day(s) 05/21/2014 Active Aspirin 81mg Active Suprep Bowel Prep 1 kit as directed Oral ly as directed 01/17/2014 Active Simvastatin 40mg Act lisa Problems Problem Type SNOMED Code ICD Code Onset Dates Problem Status W/U Status Risk Notes Problem Blood in stool (578.1) Active confirmed Plan Of Treatment Future Test Test Name Order Date COLONOSCOPY 01/17/2014 Insurance Providers Payer Name Payer Address Payer Phone Subscriber Number Group Number Insured Name Patient Relationship to Insured Coverage Start Date Coverage End Date [facility] [address] [place] [phone] [id number] NICK LEWIS Self - patient is the insured Medical (General) History Medical History History ICD Code Denies DE,DM,CVA,Lung disease,renal dise ase Hyperlipidemia
[2025-06-11 12:00] LABS: Anion Gap 11 (12-20); Blood Urea Nitrogen 9 mg/dL (9-16); Calcium 9.2 mg/dL (8.4-10.2); Carbon Dioxide 24 mmol/L (22-29); Chloride 105 mmol/L (96-108); Cholesterol 164 mg/dL (<200); Estimated Glomerular Filt Rate > 60; HDL Cholesterol 56 mg/dL (>40); Potassium 4.0 mmol/L (3.3-5.1); Sodium 136 mmol/L (135-145); Triglycerides 131 mg/dL (<150)
[2025-06-11 12:23] LABS: PSA,Total (Free>4and<10) 4.08 ng/mL (0.00-4.00)
[2025-06-12 11:07] LABS: Free Prostate Spec Ag 1.1 ng/mL; Percent Free Prostate Spec Ag 29 % (calc) (>25)
== END 2025-06-11 08:15 | disposition home or self-care (01) ==
LOC: HO.HHCL 08:14
PROVIDERS: PCP Internal Medicine; Visit Provider Internal Medicine
DX: Z12.5 Encounter for screening for malignant neoplasm of prostate (principal); I10 Essential (primary) hypertension; R35.0 Frequency of micturition
CPT/HCPCS: 36415; 80048; 80061; 84153; 84154

== ENCOUNTER 2025-09-03 09:36 | Outpatient (REF) | payer MEDICARE, MEDICAID, SELFPAY ==
--- NOTE | ~2025-09-03 | XR_ITS ---
EXAMINATION: XR HIP, LEFT CLINICAL INFORMATION: pain COMPARISON: Previous MRI of the right hip from September 2017 and October 2017 right x-ray September 2017 TECHNIQUE: Two views of the left hip. FINDINGS: Bone alignment is normal. No acute fracture or dislocation. Cortical irregularity of the left iliac bone probably related to old trauma. Mild arthritis of the left hip joint with small superior lateral osteophyte. No joint space narrowing. No corresponding x-ray finding to the abnormal signal in the subchondral left femoral head seen on MRI is appreciated. Soft tissues are unremarkable. XR/XR hip LT min 2V IMPRESSION: Mild degenerative changes. Probable old trauma to the left iliac bone. Electronically signed by: Brenna Johnson MD 09/03/2025 10:15 AM ANGEL
--- NOTE | ~2025-09-03 | XR_ITS ---
EXAMINATION: XR SHOULDER, RIGHT CLINICAL INFORMATION: pain COMPARISON: Collated to chest x-ray dated November 02, 2024 TECHNIQUE: AP external rotation, Grashey, scapular Y, and axillary views of the right shoulder. FINDINGS: Soft tissue calcification adjacent to the supraspinatus tendon insertion. Subchondral cyst formation greater tuberosity right humerus. No acute cortical disruption or malalignment. No lytic or blastic lesions. No metallic or radiopaque foreign body. Sternal wires no fully included in the [id number]. XR/XR shoulder RT min 2V IMPRESSION: Calcific tendinosis/tendinopathy, supraspinatus. Electronically signed by: Baljeet Faustin MD 09/03/2025 10:09 AM ANGEL MOORE
--- OUTSIDE RECORDS SUMMARY | 2025-09-03 17:45 | XMS_ITS | Patient Health Record ---
Author Organization [facility] Address [address] [place] [address] Care Team Providers Care Documentation Engineer Name Role Phone Nilsa Arreola Primary Care Provider Lorenzo Fay Unavailable [phone] Reason For Referral No Information Medications Medication SIG (Take, Route, Frequency, Duration) Notes Start Date End Date Status Anusol-HC 25 MG Suppository 1 suppository Rectal Once at night; Duration: 14 day(s) 05/21/2014 Active Aspirin 81mg Active Suprep Bowel Prep 1 kit Solution as directed Orally as directed 01/17/2014 Active Simvastatin 40mg Act lisa Social History Social History Additional Details Category Social Info Options Details Miscellaneous: Marital status: Single--camelia sow with same woman for 27 yrs 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--came here in approx 1985; nonsmoker; 6 beers QD Problems Problem Type SNOMED Code ICD Code Onset Dates Problem Status W/U Status Risk Notes Problem Blood in stool (608927956) Blood in stool (578.1) Active confirmed Plan Of Treatment Future Test Test Name Order Date COLONOSCOPY 01/17/2014 Insurance Providers Payer Name Payer Address Payer Phone Subscriber Number Group Number Insured Name Patient Relationship to Insured Coverage Start Date Coverage End Date [facility] [address] [facility] [phone] [id number] NICK LEWIS Self - patient is the insured Medical (General) History Medical History History ICD Code Denies [place],DM,CVA,Lung disease,renal dise ase Hyperlipidemia
== END 2025-09-03 09:37 | disposition home or self-care (01) ==
LOC: HO.HHCX 09:36
PROVIDERS: PCP Internal Medicine; Visit Provider Internal Medicine
DX: G89.29 Other chronic pain (principal); M25.511 Pain in right shoulder; M25.552 Pain in left hip
CPT/HCPCS: 73030; 73502

== ENCOUNTER → 2025-09-03 09:42 | Outpatient (BNV) | payer MEDICARE, MEDICAID, SELFPAY | PROVIDERS: PCP Internal Medicine; Visit Provider Radiology Diagnostic Radiology | DX: M75.31 Calcific tendinitis of right shoulder (principal) | CPT/HCPCS: 73030; 73502 ==

== ENCOUNTER 2025-09-17 13:38 | Outpatient (AMB) | payer MEDICARE, MEDICAID, SELFPAY ==
--- NOTE | 2025-09-17 13:43 | MHC.OFFVIS ---
Intake Visit Reasons: Urinary Frequency/Weak Stream/Elevated PSA(set) Intake Note: Reason for Visit: New Patient Urinary Frequency/Weak Urinary Stream/Elevated PSA Urology Meds: None Blood Thinners: Plavix, Aspirin Antibiotic Allergy: None Labs: PSA- 4.08 Free PSA- 1.1 %Free PSA: 29 (06/11/25) Imaging: None Last PVR: None PVR: 147ml Family History: Prostate Ca? No Bladder Ca? No Kidney Ca? No Previous Urologist? No Goodwill Ambassador Required: No Accompanied by: Self / Same As Patient Allergies atorvastatin (Lipitor) Allergy (Unknown, Verified 09/17/25 13:57) abdominal pain pravastatin Allergy (Unknown, Verified 09/17/25 13:57) abdominal pain rosuvastatin (From CRESTOR) Adverse Reaction (Intermediate, Verified 09/17/25 13:57) MUSCLE PAIN HPI Comments Details: Olman is a pleasant male. He is a patient of Dr. Tomlinson. He seen for the following urologic conditions - lower urinary tract symptoms - elevated PSA PVR initial assessment 150 indicating incomplete bladder emptying Lower urinary tract symptoms Initial assessment AUA symptom score 12 Predominant urgency frequency along with nocturia x4 PSA 06/09 4.1 29% Initiate finasteride Repeat lab work six-month Bladder ultrasound [facility] Medical History (Updated 09/17/25 @ 14:04 by Srinivas Chadwick MD) Weak urinary stream H/O urinary frequency Prediabetes Hypersomnia Erectile dysfunction Dizziness AA (alcohol abuse) RLS (restless legs syndrome) CAD, multiple vessel IFG (impaired fasting glucose) Obstructive sleep apnea Hyperlipidemia CAD (coronary artery disease) HTN (hypertension) Bypass graft stenosis Family History Other HTN (hypertension) Social History Patient Tobacco Use Status: Never used Tobacco service: No Current occupational status: retired Review of Systems Const Denies chills and Denies fever(s) Card Reports no additional complaints and Denies syncope Resp Denies cough GI Denies abdominal pain and Denies heartburn Reports as per HPI and Denies change in libido Neuro Denies syncope Psych Denies change in libido Endo Denies change in libido Physical Exam Const General: cooperative, healthy appearing, comfortable and no acute distress Orientation/consciousness: patient oriented x3 HEENT Face and sinus: Yes normal facial exam Mouth: moist mucous membranes Neck Neck: Yes normal visual inspection, Yes full ROM and Yes trachea midline Chest Chest palpation & inspection: normal inspection of the chest Resp Effort & Inspection: normal respiratory effort, able to speak in complete sentences and no respiratory distress GI Inspection: Yes normal to inspection Back/Spine/Pelvis Cervical Spine: normal cervical lordosis Thoracic/Lumbar Spine: thoracic and lumbar spine normal to inspection Skin General skin exam: no rashes or lesions noted Neuro General: patient oriented x3, gait normal, tone normal and moves all extremities Extrem General: Yes normal to inspection and Yes capillary refill normal Office Procedures Post Void Residual Post Residual Void Post Void Residual (PVR): 147 [id number] Void Residual by ultrasound Assessment & Plan Assessment & Plan (1) Elevated PSA: Code(s): R97.20 - Elevated prostate specific antigen [PSA] Category: Medical (2) Increased frequency of urination: Code(s): R35.0 - Frequency of micturition Category: Medical (3) Nocturia associated with benign prostatic hyperplasia: Code(s): N40.1 - Benign prostatic hyperplasia with lower urinary tract symptoms; R35.1 - Nocturia Category: Medical (4) Weak urinary stream: Code(s): R39.12 - Poor urinary stream Category: Medical Plan Start dutasteride Ultrasound bladder Six-month follow-up Orders: Orders AMB Post Void Residual by ultrasound Today R35.0 - Frequency of micturition PSA,Total (Free>4and<10) 6 Months R35.0 - Frequency of micturition US bladder 6 Months R35.0 - Frequency of micturition Medications: New dutasteride 0.5 mg PO DAILY 90 caps 1RF 90 days R35.0 - Frequency of micturition Patient Instructions: This note is constructed using voice recognition software. While every effort has been made to ensure accuracy trestle mechanic errors may have been included. Imaging studies, laboratory and physical exam results were discussed and reviewed in detail. No major barriers to patient understanding were identified. An opportunity to ask questions regarding the treatment plan was provided. All questions were answered. The patient expressed understanding and agreement with the above treatment plan. The patient is aware they should contact our office by phone for worsening of their current condition or the appearance of new urologic symptoms. Compliance is encouraged with any medications and followup testing that is ordered. It is a privilege to participate in the urologic care of your patient. If you have any questions or concerns regarding treatment for the above conditions, or other urologic issues, please do not hesitate to contact me. The office telephone contact is [phone]. Sincerely, Dr Srinivas Chadwick MD, [facility] - Urology Compassionate Specialist Care for the Genitourinary System Coding Level of Care Code New Pt Level 4 (99741) Diagnoses Elevated PSA R97.20 Increased frequency of urination R35.0 Nocturia associated with benign prostatic hyperplasia N40.1; R35.1 Weak urinary stream R39.12 CPT Codes Post Residual Void - PVR CPT Code: 86955-Sysn Void Residual by ultrasound ([id number])
--- OUTSIDE RECORDS SUMMARY | 2025-09-17 16:13 | XMS_ITS | Patient Health Record ---
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 Section Notes: From [facility]--came here in approx 1985; nonsmoker; 6 beers QD Problems Problem Type SNOMED Code ICD Code Onset Dates Problem Status W/U Status Risk Notes Problem Blood in stool (080872194) Blood in stool (578.1) Active confirmed Plan Of Treatment Future Test Test Name Order Date COLONOSCOPY 01/17/2014 Insurance Providers Payer Name Payer Address Payer Phone Subscriber Number Group Number Insured Name Patient Relationship to Insured Coverage Start Date Coverage End Date [facility] [address] [facility] [phone] [id number] NICK LEWIS Self - patient is the insured Medical (General) History Medical History History ICD Code Denies DE,DM,CVA,Lung disease,renal dise ase Hyperlipidemia
== END 2025-09-17 14:18 | disposition home or self-care (01) ==
LOC: HO.HUSH 13:38
PROVIDERS: PCP Internal Medicine; Visit Provider Urology
DX: R97.20 Elevated prostate specific antigen [PSA] (principal); N40.1 Benign prostatic hyperplasia with lower urinary tract symptoms; R35.0 Frequency of micturition; R35.1 Nocturia; R39.12 Poor urinary stream
CPT/HCPCS: 99204

== ENCOUNTER → 2025-09-17 13:38 | Outpatient (BNVA) | payer MEDICARE, MEDICAID, SELFPAY | PROVIDERS: PCP Internal Medicine; Visit Provider Urology | DX: R97.20 Elevated prostate specific antigen [PSA] (principal); N40.1 Benign prostatic hyperplasia with lower urinary tract symptoms; R35.1 Nocturia; R39.12 Poor urinary stream; R35.0 Frequency of micturition; Z79.01 Long term (current) use of anticoagulants; Z79.82 Long term (current) use of aspirin | CPT/HCPCS: 51798; 99202 ==